=== PATIENT | female | born 1985 | race Caucasian/White ===

== ENCOUNTER 2022-12-28 17:36 | Emergency (ER) | payer OTHER ==
[2022-12-28] MEDS ORDERED: NIRMATRELVIR/RITONAVIR PREPACK PO STA (18:51)
--- NOTE | 2022-12-28 18:53 | ED Physician Documentation ---
History of Present Illness - Stated complaint Stated Complaint: C+/COUGH/SORE THRAOT - Chief complaint Chief Complaint: General - Additonal information Additional information: 37-year-old female presents emergency department for evaluation of cough cold and congestion in setting of COVID-19 infection. She reports that her parents have requested she come to the ER to get Paxlovid. Symptoms began 4 days ago. Mostly she is bothered by the congestion and left earache. She is fully vaccinated and boosted for COVID. She has been taking Tylenol cold and flu without relief of symptoms. No history of asthma. Does have hypertension. PD PAST MEDICAL HISTORY - Past Surgical History Past Surgical History: Yes Ortho: Other /INSTRUCTIONAL COACH: section - Present Medications Home Medications: Ambulatory Orders Medication Instructions Recorded Confirmed Azithromycin [Zithromax] 250 mg PO DAILY #6 tablet 04/23/14 Norelgestromin/Ethin.estradiol 04/23/14 04/23/14 [Ortho Evra Patch] - Allergies Allergies/Adverse Reactions: Allergies Allergy/AdvReac Type Severity Reaction Status Date / Time No Known Drug Allergies Allergy Verified 04/23/14 10:14 - Social History Does the pt smoke?: No Smoking Status: Never smoker Does the pt drink ETOH?: No - Immunizations Immunizations are current?: Yes PD ED PE NORMAL - General General: Alert and oriented X 3, No acute distress, Well developed/nourished - HEENT HEENT: Atraumatic, PERRL, Ears normal, Moist mucous membranes, Pharynx benign - Neck Neck: Supple, no meningeal sign, No adenopathy - Cardiac Cardiac: RRR, No murmur - Respiratory Respiratory: No respiratory distress, Clear bilaterally - Abdomen Abdomen: Normal bowel sounds, Soft - Back Back: No CVA TTP, No spinal TTP - Derm Derm: Normal color, Warm and dry - Extremities Extremities: No deformity, No tenderness to palpate, Normal ROM s pain - Neuro Neuro: Alert and oriented X 3, treasury associate 2-12 intact Eye Opening: Spontaneous Motor: Obeys Commands Verbal: Oriented GCS Score: 15 Results - Vitals Vitals: Vital Signs - 24 hr 12/28/22 17:51 Temperature 36.8 C Heart Rate 98 Respiratory 20 Rate Blood Pressure 142/73 H O2 Saturation 98 Oxygen O2 Source Room air PD Medical Decision Making - ED course Complexity details: d/w patient ED course: 37-year-old female presents emergency department requesting Paxlovid for treatment of her COVID-19 infection. She began symptoms 4 days ago has no history of pulmonary or cardiac disease. Non-smoker. Cardiopulmonary exam was unremarkable today in the ER. No hypoxia. Deferred x-ray imaging as clinically not suspicious for pneumonia. ENT exam was also unremarkable despite patient reporting right ear pain. Clinically she is stable for outpatient treatment Paxlovid has been dispensed from the ER. We discussed the usual conservative care measures as well as emergent return precautions Departure - Departure Disposition: 01 Home, Self Care Clinical Impression: COVID-19 Condition: Stable Record reviewed to determine appropriate education?: Yes Comments: Ketty we are dispensing you with a prescription for Paxlovid the medication authorized by the FDA for outpatient treatment of COVID-19 infections. I encourage you to maintain quarantine for at least 1 week from the onset of your symptoms. Please take 600 mg of Motrin with food [id number] for body aches. You may find benefit from using Mucinex for treatment of your cough or even Sudafed to treat the congestion. Return to the ER if you find that you are having worsening symptoms, difficulty breathing or fevers. However in general I expect that you will do well with your COVID-19 infection as you are vaccinated and boosted. Most people begin to feel better after 7 to 10 days.
[2022-12-28 19:50] VITALS: BP 121/57
== END 2022-12-28 19:02 | disposition home or self-care (01) ==
LOC: ED 17:36
DX: U07.1 COVID-19 (principal)
CPT/HCPCS: 99283; J3490